=== PATIENT | male | born 1960 | race Caucasian/White ===

== ENCOUNTER 2023-03-01 13:27 | Outpatient (CLI) | payer BC | END 2023-03-01 13:28 | disposition home or self-care (01) | LOC: BICMRI 13:27 | PROVIDERS: ATTEND Internal Medicine Gastroenterology | DX: R10.13 Epigastric pain (principal); R16.0 Hepatomegaly, not elsewhere classified; N28.1 Cyst of kidney, acquired | CPT/HCPCS: 74183; 82565 ==